=== PATIENT | male | born 1970 | race Caucasian/White ===

== ENCOUNTER 2018-11-28 19:49 | Inpatient (IN) | payer OTHER ==
[2018-11-28] MEDS ORDERED: ACETAMINOPHEN TAB 500 MG TAB PO STA (20:08)
[2018-11-28] MEDS ORDERED: IBUPROFEN 600 MG TAB PO STA (20:08)
[2018-11-28 20:49] LABS: Basophils # (A) 0.1 k/uL (0-0.2); Basophils % (A) 0 %; Eosinophils # (A) 0.2 k/uL (0-0.7); Eosinophils % (A) 2 %; HCT 43.1 % (39.0-53.0); HGB 14.4 gm/dL (13.0-17.5); Lymphocytes # (A) 1.1 k/uL (1.0-4.8); Lymphocytes % (A) 8 %; MCH 28.2 pg (25.0-35.0); MCHC 33.5 g/dL (31.0-37.0); MCV 84.3 fL (80.0-100.0); Mean Platelet Volume 7.8; Monocytes # (A) 0.8 k/uL (0-1.0); Monocytes % (A) 5 %; Neutrophils % (A) 83 %; Platelet Count 239 k/uL (150-450); RBC 5.11 m/uL (4.30-5.90); RDW 14.3 % (11.5-15.5); WBC 14.4 k/uL (3.8-10.6)
--- NOTE | 2018-11-28 20:55 | ED ---
General Adult HPI - General Source: patient Mode of arrival: ambulatory Limitations: no limitations <Cynthia Alonzo - Last Filed: 11/28/18 22:06> <Sandra Santoro - Last Filed: 11/29/18 07:42> - General Chief complaint: Skin/Abscess/Foreign Body Stated complaint: Head swelling Time Seen by Provider: 11/28/18 20:02 - History of Present Illness Initial comments: 48-year-old male patient presents to the emergency department today for evaluation of redness and pain to his scalp. Patient states he was seen and evaluated at urgent care, sent here for cellulitis. Patient states that he developed redness 2-3 days ago. Patient states that the redness has been spreading and has become more painful. Denies any areas of swelling or abscess. Patient states he has been feverish and chilled. Patient states he does shave his head with an electric razor. Patient denies any other medical problems, denies diabetes, or history of similar infection. States he did have one episode of vomiting this morning. Denies any abdominal pain or diarrhea. Denies taking any medication for his symptoms. Patient denies any recent rash, fever, chills, shortness breath, chest pain, abdominal pain, nausea, vomiting, diarrhea, constipation, back pain, numbness, tingling, dizziness, weakness, hematuria, dysuria, urinary urgency, urinary frequency, headache, visual changes, or any other complaints. (Cynthia Alonzo) - Related Data Allergies Allergy/AdvReac Type Severity Reaction Status Date / Time No Known Allergies Allergy Verified 11/28/18 22:28 Review of Systems ROS Other: All systems not noted in ROS Statement are negative. <Cynthia Alonzo - Last Filed: 11/28/18 22:06> ROS Other: All systems not noted in ROS Statement are negative. <Sandra Santoro - Last Filed: 11/29/18 07:42> ROS Statement: Those systems with pertinent positive or pertinent negative responses have been documented in the HPI. Past Medical History Past Medical History: No Reported History History of Any Multi-Drug Resistant Organisms: None Reported Past Surgical History: No Surgical Hx Reported Past Psychological History: No Psychological Hx Reported Smoking Status: Never smoker Past Alcohol Use History: Rare Past Drug Use History: None Reported <Cynthia Alonzo - Last Filed: 11/28/18 22:06> General Exam Limitations: no limitations General appearance: alert, in no apparent distress, other (Physical well- developed, well-nourished adult male patient in no acute distress. Vital signs upon presentation are temperature 102.7F, pulse 99, respirations 18, blood pressure 139/83, pulse ox 98% on room air.) Head exam: Present: other (There is erythema and soft tissue swelling noted over the left scalp extending down into the neck) Eye exam: Present: normal appearance, PERRL, EOMI. Absent: scleral icterus, conjunctival injection, periorbital swelling ENT exam: Present: normal exam, normal oropharynx, mucous membranes moist Neck exam: Present: normal inspection. Absent: tenderness, meningismus, lymphadenopathy Respiratory exam: Present: normal lung sounds bilaterally. Absent: respiratory distress, wheezes, rales, rhonchi, stridor Cardiovascular Exam: Present: regular rate, normal rhythm, normal heart sounds. Absent: systolic murmur, diastolic murmur, rubs, gallop, clicks GI/Abdominal exam: Present: soft, normal bowel sounds. Absent: distended, tenderness, guarding, rebound, rigid Neurological exam: Present: alert, oriented X3, CN II-XII intact Psychiatric exam: Present: normal affect, normal mood Skin exam: Present: warm, dry, intact, normal color. Absent: rash <Cynthia Alonzo M - Last Filed: 11/28/18 22:06> Course Vital Signs 11/28/18 11/28/18 11/28/18 19:51 21:47 22:00 Temperature 102.7 F H Pulse Rate 99 97 102 H Respiratory 18 16 16 Rate Blood Pressure 139/83 135/76 137/77 O2 Sat by Pulse 98 96 95 Oximetry 11/28/18 11/29/18 23:00 00:00 Temperature 100.2 F H Pulse Rate 98 84 Respiratory 16 16 Rate Blood Pressure 125/89 114/66 O2 Sat by Pulse 94 L 95 Oximetry Medical Decision Making - Lab Data Result diagrams: 11/28/18 20:30 11/28/18 20:30 <Cynthia Alonzo M - Last Filed: 11/28/18 22:06> - Lab Data Result diagrams: 11/28/18 20:30 11/28/18 20:30 <Sandra Santoro Last Filed: 11/29/18 07:42> - Medical Decision Making 48-year-old male patient presents to the emergency department today sent from urgent care for evaluation of cellulitis of the scalp. Patient is febrile 102.7F. Labs reviewed and did reveal elevated white blood cell count of 14.4. Given evidence for sepsis we'll admit for IV antibiotics. We will repeat labs in the morning. Antibiotics will be provided. (Cynthia Alonzo) I was available for consultation in the emergency department. The history and physical exam were done by the midlevel provider. I was consulted for this patient's care. I reviewed the case with the midlevel provider and based on their presentation of the patient, I agree with the assessment, medical decision making and plan of care as documented. care was discussed with . she agrees with admission for cellulitis of the scalp resulting in sepsis. Chart was dictated using [employer] dictation software. Attempts were made to correct any dictation errors however some typographical errors may persist. (Sandra Santoro) - Lab Data Lab Results 11/28/18 11/28/18 11/28/18 Range/Units 20:30 20:30 20:30 WBC 14.4 H (3.8-10.6) k/uL RBC 5.11 (4.30-5.90) m/uL Hgb 14.4 (13.0-17.5) gm/dL Hct 43.1 (39.0-53.0) % MCV 84.3 (80.0-100.0) fL MCH 28.2 (25.0-35.0) pg MCHC 33.5 (31.0-37.0) g/dL RDW 14.3 (11.5-15.5) % Plt Count 239 (150-450) k/uL Neutrophils % 83 % Lymphocytes % 8 % Monocytes % 5 % Eosinophils % 2 % Basophils % 0 % Neutrophils # 12.0 H (1.3-7.7) k/uL Lymphocytes # 1.1 (1.0-4.8) k/uL Monocytes # 0.8 (0-1.0) k/uL Eosinophils # 0.2 (0-0.7) k/uL Basophils # 0.1 (0-0.2) k/uL PT (9.0-12.0) sec INR (<1.2) APTT (22.0-30.0) sec Sodium 137 (137-145) mmol/L Potassium 4.0 (3.5-5.1) mmol/L Chloride 101 (98-107) mmol/L Carbon Dioxide 25 (22-30) mmol/L Anion Gap 11 mmol/L BUN 13 (9-20) mg/dL Creatinine 0.95 (0.66-1.25) mg/dL Est GFR (CKD-EPI)AfAm >90 (>60 ml/min/1.73 sqM) Est GFR (CKD-EPI)NonAf >90 (>60 ml/min/1.73 sqM) Glucose 115 H (74-99) mg/dL Plasma Lactic Acid Patrice 1.3 (0.7-2.0) mmol/L Calcium 9.6 (8.4-10.2) mg/dL Total Bilirubin 1.1 (0.2-1.3) mg/dL AST 19 (17-59) U/L ALT 22 (21-72) U/L Alkaline Phosphatase 61 (38-126) U/L Total Protein 7.1 (6.3-8.2) g/dL Albumin 4.3 (3.5-5.0) g/dL 11/28/18 Range/Units 20:30 WBC (3.8-10.6) k/uL RBC (4.30-5.90) m/uL Hgb (13.0-17.5) gm/dL Hct (39.0-53.0) % MCV (80.0-100.0) fL MCH (25.0-35.0) pg MCHC (31.0-37.0) g/dL RDW (11.5-15.5) % Plt Count (150-450) k/uL Neutrophils % % Lymphocytes % % Monocytes % % Eosinophils % % Basophils % % Neutrophils # (1.3-7.7) k/uL Lymphocytes # (1.0-4.8) k/uL Monocytes # (0-1.0) k/uL Eosinophils # (0-0.7) k/uL Basophils # (0-0.2) k/uL PT 10.6 (9.0-12.0) sec INR 1.0 (<1.2) APTT 25.2 (22.0-30.0) sec Sodium (137-145) mmol/L Potassium (3.5-5.1) mmol/L Chloride (98-107) mmol/L Carbon Dioxide (22-30) mmol/L Anion Gap mmol/L BUN (9-20) mg/dL Creatinine (0.66-1.25) mg/dL Est GFR (CKD-EPI)AfAm (>60 ml/min/1.73 sqM) Est GFR (CKD-EPI)NonAf (>60 ml/min/1.73 sqM) Glucose (74-99) mg/dL Plasma Lactic Acid Patrice (0.7-2.0) mmol/L Calcium (8.4-10.2) mg/dL Total Bilirubin (0.2-1.3) mg/dL AST (17-59) U/L ALT (21-72) U/L Alkaline Phosphatase (38-126) U/L Total Protein (6.3-8.2) g/dL Albumin (3.5-5.0) g/dL Disposition Decision to Admit Reason: Admit from EC Decision Date: 11/28/18 Decision Time: 22:08 <Cynthia Alonzo - Last Filed: 11/28/18 22:06> <Sandra Santoro - Last Filed: 11/29/18 07:42> Clinical Impression: Cellulitis of scalp Disposition: ADMITTED IP TO THIS [facility] Condition: Serious
[2018-11-28 21:01] LABS: ALT 22 U/L (21-72); AST 19 U/L (17-59); Albumin 4.3 g/dL (3.5-5.0); Alkaline Phosphatase 61 U/L (38-126); Anion Gap 11 mmol/L; Blood Urea Nitrogen 13 mg/dL (9-20); Calcium 9.6 mg/dL (8.4-10.2); Carbon Dioxide 25 mmol/L (22-30); Chloride 101 mmol/L (98-107); Glucose 115 mg/dL (74-99); Sodium 137 mmol/L (137-145); Total Bilirubin 1.1 mg/dL (0.2-1.3); Total Protein 7.1 g/dL (6.3-8.2)
[2018-11-28] MEDS: SODIUM CHLORIDE 0.9% 500 ML 500 ML IV SCH ×2 (21:02→21:49)
[2018-11-28 21:13] LABS: Partial Thromboplastin Time 25.2 sec (22.0-30.0); Prothrombin Time 10.6 sec (9.0-12.0)
[2018-11-28] MEDS ORDERED: ACETAMINOPHEN TAB 325 MG TAB PO PRN (22:04)
[2018-11-28] MEDS ORDERED: NALOXONE 0.4 MG/ML 1 ML VIAL IV PRN (22:04)
[2018-11-28] MEDS ORDERED: ONDANSETRON 4 MG/2 ML VIAL IVP PRN (22:04)
[2018-11-28] MEDS ORDERED: MORPHINE SULFATE 4 MG/ML SYRINGE IVP STA (22:06)
[2018-11-28 23:29] LABS: Appearance,Urine Clear (Clear); Bilirubin,Urine Negative (Negative); Blood,Urine Small (Negative); Color,Urine Yellow; Glucose,Urine (UA) Negative (Negative); Ketones,Urine 1+ (Negative); Leukocyte Esterase,Urine Negative (Negative); Mucus,Urine Moderate /hpf; Nitrite,Urine Negative (Negative); PH, Urine 5.5 (5.0-8.0); Protein,Urine Trace (Negative); RBC,Urine 1 /hpf (0-5); Specific Gravity,Urine 1.031 (1.001-1.035); Squamous Epithelial Cell,Urine <1 /hpf (0-4); WBC,Urine 3 /hpf (0-5)
[2018-11-28] MEDS: SODIUM CHLORIDE 0.9% 1,000 ML IV SCH (23:59)
[2018-11-29] MEDS: SODIUM CHLORIDE 0.9% 500 ML 500 ML IV SCH (00:20)
[2018-11-29 01:40] VITALS: BMI 27.5
[2018-11-29] MEDS: IBUPROFEN 400 MG TAB PO PRN ×3 (07:52→20:46)
[2018-11-29 07:54] LABS: Basophils % (A) 0 %; Eosinophils # (A) 0.2 k/uL (0-0.7); Eosinophils % (A) 2 %; HCT 38.6 % (39.0-53.0); HGB 12.3 gm/dL (13.0-17.5); Lymphocytes # (A) 1.1 k/uL (1.0-4.8); Lymphocytes % (A) 13 %; MCH 27.5 pg (25.0-35.0); MCHC 31.8 g/dL (31.0-37.0); MCV 86.4 fL (80.0-100.0); Mean Platelet Volume 7.9; Monocytes # (A) 0.6 k/uL (0-1.0); Monocytes % (A) 7 %; Neutrophils # (A) 6.5 k/uL (1.3-7.7); Neutrophils % (A) 76 %; Platelet Count 199 k/uL (150-450); RBC 4.47 m/uL (4.30-5.90); WBC 8.6 k/uL (3.8-10.6)
[2018-11-29] MEDS: SODIUM CHLORIDE 0.9% 1,000 ML IV SCH ×2 (12:44→13:24)
--- NOTE | 2018-11-29 15:08 | P.HPIM ---
History of Present Illness 48-year-old the male came in with redness of the scalp found as the lightest patient does have fever and increasing redness pain tenderness patient does not have any orbital involvement. He does shave his head with electric razor. Patient doesn't have any history of diabetes mellitus. Patient is on Cefazolin appears to have some improvement ceftezolin patient will be monitored on Keflex. Patient is afebrile and if she is a lightest improves patient can be discharged on Keflex for about a week. Review of Systems REVIEW OF SYSTEMS: CONSTITUTIONAL: No fever, no malaise, no fatigue. HEENT: No recent visual problems or hearing problems. Denied any sore throat. CARDIOVASCULAR: No chest pain, orthopnea, PND, no palpitations, no syncope. PULMONARY: No shortness of breath, no cough, no hemoptysis. GASTROINTESTINAL: No diarrhea, no nausea, no vomiting, no abdominal pain. NEUROLOGICAL: No headaches, no weakness, no numbness. HEMATOLOGICAL: Denies any bleeding or petechiae. GENITOURINARY: Denies any burning micturition, frequency, or urgency. MUSCULOSKELETAL/RHEUMATOLOGICAL: Denies any joint pain, swelling, or any muscle pain. ENDOCRINE: Denies any polyuria or polydipsia. The rest of the 14-point review of systems is negative. Past Medical History Past Medical History: No Reported History History of Any Multi-Drug Resistant Organisms: None Reported Past Surgical History: No Surgical Hx Reported Past Psychological History: No Psychological Hx Reported Smoking Status: Never smoker Past Alcohol Use History: Rare Past Drug Use History: None Reported - Past Family History Mother Family Medical History: No Reported History Father Family Medical History: Coronary Artery Disease (CAD) Medications and Allergies Home Medications Medication Instructions Recorded Confirmed Type No Known Home Medications 11/28/18 11/28/18 History Allergies Allergy/AdvReac Type Severity Reaction Status Date / Time No Known Allergies Allergy Verified 11/28/18 22:28 Physical Exam Vitals: Vital Signs Temp Pulse Pulse Resp BP BP BP 11/29/18 14:37 79 20 11/29/18 11:25 97.9 F 79 20 112/75 11/29/18 05:06 97.5 F L 78 18 101/65 11/29/18 01:45 97.8 F 76 18 106/66 11/29/18 00:00 84 16 114/66 11/28/18 23:00 100.2 F H 98 16 125/89 11/28/18 22:00 102 H 16 137/77 11/28/18 21:47 97 16 135/76 11/28/18 19:51 102.7 F H 99 18 139/83 Pulse Ox 11/29/18 14:37 11/29/18 11:25 97 11/29/18 05:06 97 11/29/18 01:45 94 L 11/29/18 00:00 95 11/28/18 23:00 94 L 11/28/18 22:00 95 11/28/18 21:47 96 11/28/18 19:51 98 Intake and Output 11/29/18 11/29/18 11/29/18 06:59 14:59 22:59 Intake Total 2089 2199 Balance 2089 2199 Intake: Amount of Fluid Infused ( 1500 ml) Intake, IV Titration 700 Amount Sodium Chloride 0.9% 1, 650 000 ml @ 75 mls/hr IV . [id number] [facility] Rx#:[id number] ceFAZolin 1,000 mg In 50 Sodium Chloride 0.9% 50 ml @ 100 mls/hr IVPB Q8H [facility] Rx#:[id number] Oral 590 1500 Other: Voiding Method Toilet Toilet # Voids 3 PHYSICAL EXAMINATION: GENERAL: The patient is alert and oriented x3, not in any acute distress. Well developed, well nourished. HEENT: Pupils are round and equally reacting to light. EOMI. No scleral icterus. No conjunctival pallor. Normocephalic, atraumatic. No pharyngeal erythema. No thyromegaly. CARDIOVASCULAR: S1 and S2 present. No murmurs, rubs, or gallops. PULMONARY: Chest is clear to auscultation, no wheezing or crackles. ABDOMEN: Soft, nontender, nondistended, normoactive bowel sounds. No palpable organomegaly. MUSCULOSKELETAL: No joint swelling or deformity. EXTREMITIES: No cyanosis, clubbing, or pedal edema. NEUROLOGICAL: Gross neurological examination did not reveal any focal deficits. SKIN: He is redness of the scalp involving the whole scalp area and forehead as well. Results CBC & Chem 7: 11/29/18 07:17 11/28/18 20:30 Labs: Abnormal Lab Results - Last 24 Hours (Table) 11/28/18 11/28/18 11/28/18 Range/Units 20:30 20:30 23:10 WBC 14.4 H (3.8-10.6) k/uL Hgb (13.0-17.5) gm/dL Hct (39.0-53.0) % Neutrophils # 12.0 H (1.3-7.7) k/uL Glucose 115 H (74-99) mg/dL Urine Protein Trace H (Negative) Urine Ketones 1+ H (Negative) Urine Blood Small H (Negative) Urine Mucus Moderate H (None) /hpf 11/29/18 Range/Units 07:17 WBC (3.8-10.6) k/uL Hgb 12.3 L (13.0-17.5) gm/dL Hct 38.6 L (39.0-53.0) % Neutrophils # (1.3-7.7) k/uL Glucose (74-99) mg/dL Urine Protein (Negative) Urine Ketones (Negative) Urine Blood (Negative) Urine Mucus (None) /hpf Microbiology - Last 24 Hours (Table) 11/28/18 23:10 Urine Culture - Preliminary Urine,Voided Thrombosis Risk Factor Assmnt - Choose All That Apply Any of the Below Risk Factors Present?: Yes Each Factor Represents 1 point: Obesity (BMI >25) Thrombosis Risk Factor Assessment Total Risk Factor Score: 1 Thrombosis Risk Factor Assessment Level: Low Risk Assessment and Plan Plan: -Cellulitis of the scalp: No history of MRSA patient does not have any lymphadenopathy patient was started on ceftezolin. Fever improved white blood cell count improved -Sepsis and leukocytosis secondary to above.
[2018-11-29 20:30] VITALS: RESP 18
[2018-11-30] MEDS: IBUPROFEN 400 MG TAB PO PRN (04:24)
[2018-11-30 05:08] VITALS: BP 123/78; PULSE 87; TEMP 98
--- NOTE | 2018-11-30 16:13 | P.DS ---
Providers Date of admission: 11/28/18 23:00 Attending physician: Bon Garza Primary care physician: Nicole Dietz Hospital Course: 48-year-old admitted with facilities of the scalp from an electric razor. Patient redness improved with ceftezolin and no evidence of MRSA patient will be to discharged on Keflex his redness did improve in last couple days his redness doesn't resolve in next 2-3 days probably antibiotic need to be changed to Bactrim to cover MRSA at that time. Patient will be discharged today with follow-up with PCP as an outpatient. Fevers resolved, blood cultures so far negative. PHYSICAL EXAMINATION: GENERAL: The patient is alert and oriented x3, not in any acute distress. Well developed, well nourished. HEENT: Pupils are round and equally reacting to light. EOMI. No scleral icterus. No conjunctival pallor. Normocephalic, atraumatic. No pharyngeal erythema. No thyromegaly. CARDIOVASCULAR: S1 and S2 present. No murmurs, rubs, or gallops. PULMONARY: Chest is clear to auscultation, no wheezing or crackles. ABDOMEN: Soft, nontender, nondistended, normoactive bowel sounds. No palpable organomegaly. MUSCULOSKELETAL: No joint swelling or deformity. EXTREMITIES: No cyanosis, clubbing, or pedal edema. NEUROLOGICAL: Gross neurological examination did not reveal any focal deficits. SKIN: Scalp redness did improve compared to yesterday Please refer to my HPI for further details of hospitalization course Patient Condition at Discharge: Good Plan - Discharge Summary Discharge Rx Participant: No New Discharge Prescriptions: New Cephalexin [Keflex] 500 mg PO Q6HR #28 cap Discharge Medication List Cephalexin [Keflex] 500 mg PO Q6HR #28 cap 11/30/18 [Rx] Follow up Appointment(s)/Referral(s): Nicole Dietz MD [Primary Care Provider] - 1-2 days (office to call pt for follow up appt) Patient Instructions/Handouts: Cephalexin (By mouth), Cellulitis (DC) Activity/Diet/Wound Care/Special Instructions: Diet as tolerated Activity as tolerated Discharge Disposition: HOME SELF-CARE
--- NOTE | 2018-12-02 02:49 | CDI ---
Documentation Clarification Form Date: 12/02/18 From: Wes Duggan Phone: call to [phone] Admit Date: 11/28/2018 11:00:00 PM Patient Name: Jorge Luis Green Visit Number: [id number] Discharge Date: 11/30/2018 12:30:00 PM ATTENTION: The Clinical Documentation Specialists (CDI) and [facility] Coding Staff appreciate your assistance in clarifying documentation. Please respond to the clarification below the line at the bottom and electronically sign. The CDI & [facility] Coding staff will review the response and follow-up if needed. Please note: Queries are made part of the Legal Health Record. If you have any questions, please contact the author of this message via ITS. Dr. Bekah Govea The patient presented with the following cellulitis. History/Risk Factors: cellulitis Clinical Indicators: WBC :14.4 Lactic acid: 1.3 Blood cultures: negative so far Vitals signs on admission: pulse 99 RR 18 Treatment: IV abx Antibiotics:Ceftezolin IV fluids: yes Other: Documented In H&P as Sepsis secondary to cellulitis but discharge summary states only cellulitis. In your professional opinion, please clarify if these findings signify one of the following conditions, Sepsis ruled out Sepsis Other, please specify Unable to determine If it's dictated in H&P then patient had sepsis MTDD
== END 2018-11-30 12:30 | disposition home or self-care (01) | DRG 872 ==
LOC: EC 19:49 → 3NMEDONC 23:00
PROVIDERS: ADMIT Hospitalist; ATTEND Hospitalist
DX: A41.9 Sepsis, unspecified organism (principal); L03.811 Cellulitis of head [any part, except face]; Z82.49 Family history of ischemic heart disease and other diseases of the circulatory system
CPT/HCPCS: 36415; 80053; 81001; 83605; 85025; 85610; 85730; 87040; 87086; 96361; 96365; 96375; 99284

== ENCOUNTER 2019-09-10 10:26 | Inpatient (IN) | payer OTHER ==
[2019-09-10] MEDS ORDERED: SODIUM CHLORIDE 0.9% 1,000 ML IV STA (11:11)
[2019-09-10] MEDS ORDERED: IBUPROFEN 600 MG TAB PO STA (11:11)
[2019-09-10] MEDS ORDERED: SODIUM CHLORIDE 0.9% 1,250 ML IV ONE (11:13)
--- NOTE | 2019-09-10 12:24 | ED ---
Fever HPI - General Chief Complaint: Fever Stated Complaint: Fever, Ear Infection Time Seen by Provider: 09/10/19 10:40 Source: patient Mode of arrival: wheelchair Limitations: no limitations - History of Present Illness Initial Comments: The patient is a 41-year-old male with no past medical history who presents to the emergency department with reported fever and left ear pain with swelling. Patient reports a history of similar approximately one year ago. States it diagnosed with cellulitis which required a 2 day hospital stay with IV antibiotics. Reports that the left ear pain and swelling started yesterday around 4:30 AM. He has significant pain to the internal left ear as well as the left external ear. Also reports to post auricular pain. Admits to decreased hearing. Has not taken any Motrin or Tylenol for fever. He went to an urgent care yesterday for which they did call in an antibiotic ear drop. States that he attempted to pick it up from pharmacy however it was over $300 for the prescription so he has yet to start it. Denies any neck pain or stiffness. No altered mentation from the patient. Denies any nausea or vomiting. No chest pain or shortness of breath. Denies a cough. No palpable pain or changes in his bowel or bladder habits. Denies any other source for infection. There are no other alleviating, precipitating or modifying factors - Related Data Previous Rx's Medication Instructions Recorded Cephalexin [Keflex] 500 mg PO Q6HR #30 cap 09/14/19 Ciprofloxacin-Dexameth [Ciprodex 4 drops LEFT EAR TID ml 09/14/19 Otic Susp] Naproxen [Naprosyn] 250 mg PO TID #21 tab 09/14/19 Allergies Allergy/AdvReac Type Severity Reaction Status Date / Time No Known Allergies Allergy Verified 09/10/19 15:01 Review of Systems ROS Statement: Those systems with pertinent positive or pertinent negative responses have been documented in the HPI. ROS Other: All systems not noted in ROS Statement are negative. Past Medical History Past Medical History: No Reported History History of Any Multi-Drug Resistant Organisms: None Reported Past Surgical History: No Surgical Hx Reported Past Psychological History: No Psychological Hx Reported Smoking Status: Never smoker Past Alcohol Use History: Rare Past Drug Use History: None Reported - Past Family History Mother Family Medical History: No Reported History Father Family Medical History: Coronary Artery Disease (CAD) General Exam Limitations: no limitations General appearance: alert, in no apparent distress Head exam: Present: atraumatic Eye exam: Present: PERRL, EOMI ENT exam: Present: other (left ear is markedly swollen and red. Left external auditory canal is stenosed and tortuous. Mild cream exudate. TM deep is red in color. Redness tracts to the preauricular area and down onto the patients left neck. Right TM and external ear is asymptomatic.) Neck exam: Present: normal inspection. Absent: tenderness, meningismus, lymphadenopathy Respiratory exam: Present: normal lung sounds bilaterally. Absent: respiratory distress, wheezes, rales, rhonchi, stridor Cardiovascular Exam: Present: normal rhythm, tachycardia GI/Abdominal exam: Present: soft, normal bowel sounds. Absent: distended, tenderness, guarding, rebound, rigid Course Vital Signs 09/10/19 09/10/19 10:37 14:25 Temperature 103.1 F H 98.8 F Pulse Rate 111 H 110 H Respiratory 20 18 Rate Blood Pressure 149/79 133/78 O2 Sat by Pulse 96 95 Oximetry Medical Decision Making - Medical Decision Making Upon arrival the patient was placed in room 5. A thorough history and physical exam was performed. I did order laboratory studies and a CT of the patient's external auditory canal exam concern for mastoiditis. 3 nurses did attempt to get peripheral access on the patient however they had difficulty. I then evaluated the patient with ultrasound and I do not have an identifiable vessel to cannulate. We called ENVIRONMENTAL PROJECT MANAGER to come to the emergency department for assistance. She did get called to a emergent case and therefore the photonics engineering technologist does attempt IV access and was able to get the patient's right hand. Review of the laboratory studies demonstrated with blood cell count of 14.5. C-reactive protein is 52. Posterior fossa CT demonstrates no signs of mastoiditis. There is signs of soft tissue swelling and edema involving the left ear external auditory Consistent with otitis externa. I did place the patient on Zosyn after I obtained blood cultures. I also ordered ofloxacin drops for the patient's ear. I did plan on putting a wic in the patient's ear however he did go up to the floor before I was able to do this. The patient was given Motrin for fever control. I did recommend admission for which the patient did agree. I called and discussed the case with Dr. Torres who accepted admission. I will place ENT and infectious disease consult. The patient was in agreement with the treatment plan and he was transferred to floor in stable condition - Lab Data Result diagrams: 09/12/19 09:25 09/11/19 07:27 Lab Results 09/10/19 09/10/19 09/10/19 Range/Units 12:45 12:45 12:45 WBC 14.5 H (3.8-10.6) k/uL RBC 5.16 (4.30-5.90) m/uL Hgb 15.3 (13.0-17.5) gm/dL Hct 44.7 (39.0-53.0) % MCV 86.5 (80.0-100.0) fL MCH 29.6 (25.0-35.0) pg MCHC 34.2 (31.0-37.0) g/dL RDW 13.1 (11.5-15.5) % Plt Count 217 (150-450) k/uL Neutrophils % 91 % Lymphocytes % 4 % Monocytes % 4 % Eosinophils % 1 % Basophils % 0 % Neutrophils # 13.2 H (1.3-7.7) k/uL Lymphocytes # 0.5 L (1.0-4.8) k/uL Monocytes # 0.5 (0-1.0) k/uL Eosinophils # 0.1 (0-0.7) k/uL Basophils # 0.0 (0-0.2) k/uL Sodium 137 (137-145) mmol/L Potassium 4.2 (3.5-5.1) mmol/L Chloride 103 (98-107) mmol/L Carbon Dioxide 23 (22-30) mmol/L Anion Gap 11 mmol/L BUN 15 (9-20) mg/dL Creatinine 0.98 (0.66-1.25) mg/dL Est GFR (CKD-EPI)AfAm >90 (>60 ml/min/1.73 sqM) Est GFR (CKD-EPI)NonAf >90 (>60 ml/min/1.73 sqM) Glucose 112 H (74-99) mg/dL Plasma Lactic Acid Patrice 1.6 (0.7-2.0) mmol/L Calcium 9.5 (8.4-10.2) mg/dL Total Bilirubin 0.9 (0.2-1.3) mg/dL AST 25 (17-59) U/L ALT 21 (4-49) U/L Alkaline Phosphatase 89 (38-126) U/L C-Reactive Protein 52.0 H (<10.0) mg/L Total Protein 7.6 (6.3-8.2) g/dL Albumin 4.5 (3.5-5.0) g/dL 09/11/19 09/11/19 09/12/19 Range/Units 07:27 07:27 09:25 WBC 11.6 H 6.5 (3.8-10.6) k/uL RBC 4.38 4.46 (4.30-5.90) m/uL Hgb 12.6 L 12.7 L (13.0-17.5) gm/dL Hct 37.9 L 39.0 (39.0-53.0) % MCV 86.7 87.5 (80.0-100.0) fL MCH 28.7 28.6 (25.0-35.0) pg MCHC 33.1 32.7 (31.0-37.0) g/dL RDW 13.2 13.3 (11.5-15.5) % Plt Count 250 218 (150-450) k/uL Neutrophils % 81 74 % Lymphocytes % 11 14 % Monocytes % 6 4 % Eosinophils % 0 5 % Basophils % 0 0 % Neutrophils # 9.4 H 4.8 (1.3-7.7) k/uL Lymphocytes # 1.2 0.9 L (1.0-4.8) k/uL Monocytes # 0.7 0.3 (0-1.0) k/uL Eosinophils # 0.0 0.3 (0-0.7) k/uL Basophils # 0.0 0.0 (0-0.2) k/uL Sodium 137 (137-145) mmol/L Potassium 4.0 (3.5-5.1) mmol/L Chloride 107 (98-107) mmol/L Carbon Dioxide 23 (22-30) mmol/L Anion Gap 7 mmol/L BUN 13 (9-20) mg/dL Creatinine 0.91 (0.66-1.25) mg/dL Est GFR (CKD-EPI)AfAm >90 (>60 ml/min/1.73 sqM) Est GFR (CKD-EPI)NonAf >90 (>60 ml/min/1.73 sqM) Glucose 109 H (74-99) mg/dL Plasma Lactic Acid Patrice (0.7-2.0) mmol/L Calcium 8.3 L (8.4-10.2) mg/dL Total Bilirubin (0.2-1.3) mg/dL AST (17-59) U/L ALT (4-49) U/L Alkaline Phosphatase (38-126) U/L C-Reactive Protein (<10.0) mg/L Total Protein (6.3-8.2) g/dL Albumin (3.5-5.0) g/dL 09/12/19 Range/Units 09:25 WBC (3.8-10.6) k/uL RBC (4.30-5.90) m/uL Hgb (13.0-17.5) gm/dL Hct (39.0-53.0) % MCV (80.0-100.0) fL MCH (25.0-35.0) pg MCHC (31.0-37.0) g/dL RDW (11.5-15.5) % Plt Count (150-450) k/uL Neutrophils % % Lymphocytes % % Monocytes % % Eosinophils % % Basophils % % Neutrophils # (1.3-7.7) k/uL Lymphocytes # (1.0-4.8) k/uL Monocytes # (0-1.0) k/uL Eosinophils # (0-0.7) k/uL Basophils # (0-0.2) k/uL Sodium (137-145) mmol/L Potassium (3.5-5.1) mmol/L Chloride (98-107) mmol/L Carbon Dioxide (22-30) mmol/L Anion Gap mmol/L BUN (9-20) mg/dL Creatinine (0.66-1.25) mg/dL Est GFR (CKD-EPI)AfAm (>60 ml/min/1.73 sqM) Est GFR (CKD-EPI)NonAf (>60 ml/min/1.73 sqM) Glucose (74-99) mg/dL Plasma Lactic Acid Patrice (0.7-2.0) mmol/L Calcium (8.4-10.2) mg/dL Total Bilirubin (0.2-1.3) mg/dL AST (17-59) U/L ALT (4-49) U/L Alkaline Phosphatase (38-126) U/L C-Reactive Protein 131.1 H (<10.0) mg/L Total Protein (6.3-8.2) g/dL Albumin (3.5-5.0) g/dL Disposition Clinical Impression: Left otitis externa, Cellulitis of scalp, Sepsis Disposition: ADMITTED IP TO THIS [facility] Condition: Stable Is patient prescribed a controlled substance at d/c from ED?: No Decision to Admit Reason: Admit from EC Decision Date: 09/10/19 Decision Time: 14:56
[2019-09-10 13:12] LABS: Basophils % (A) 0 %; Eosinophils # (A) 0.1 k/uL (0-0.7); Eosinophils % (A) 1 %; HCT 44.7 % (39.0-53.0); HGB 15.3 gm/dL (13.0-17.5); Lymphocytes # (A) 0.5 k/uL (1.0-4.8); Lymphocytes % (A) 4 %; MCH 29.6 pg (25.0-35.0); MCHC 34.2 g/dL (31.0-37.0); MCV 86.5 fL (80.0-100.0); Mean Platelet Volume 8.8; Monocytes # (A) 0.5 k/uL (0-1.0); Monocytes % (A) 4 %; Neutrophils # (A) 13.2 k/uL (1.3-7.7); Neutrophils % (A) 91 %; Platelet Count 217 k/uL (150-450); RBC 5.16 m/uL (4.30-5.90); RDW 13.1 % (11.5-15.5); WBC 14.5 k/uL (3.8-10.6)
[2019-09-10 13:21] LABS: ALT 21 U/L (4-49); AST 25 U/L (17-59); African American GFR (CKD) >90 (>60 ml/min/1.73 sqM); Albumin 4.5 g/dL (3.5-5.0); Alkaline Phosphatase 89 U/L (38-126); Anion Gap 11 mmol/L; Blood Urea Nitrogen 15 mg/dL (9-20); Calcium 9.5 mg/dL (8.4-10.2); Carbon Dioxide 23 mmol/L (22-30); Chloride 103 mmol/L (98-107); Glucose 112 mg/dL (74-99); Non-African American GFR(CKD) >90 (>60 ml/min/1.73 sqM); Potassium 4.2 mmol/L (3.5-5.1); Sodium 137 mmol/L (137-145); Total Bilirubin 0.9 mg/dL (0.2-1.3); Total Protein 7.6 g/dL (6.3-8.2)
--- NOTE | 2019-09-10 14:39 | CT ---
EXAMINATION TYPE: CT posterior fossa w con DATE OF EXAM: 09/10/2019 COMPARISON: None HISTORY: Pt c/o Lt ear pain with redness and swelling. CT DLP: 287.3 mGycm Automated exposure control for dose reduction was used. CONTRAST: Performed with IV Contrast, patient injected with 100 mL of Isovue 300. CT scan of the temporal bones. History left ear pain. Redness and swelling. Comparison none. TECHNIQUE: Multiple axial sections were obtained from the skull base to the top of the orbits with intravenous c ontrast. There is mucosal thickening in the left maxillary sinus. Maxilla is intact. Zygomatic arches appear n ormal. There is normal aeration of the mastoid air cells. External auditory canals appear normal on t he right side and slightly narrowed on the left side due to soft tissue mild edema. There is mild sub cutaneous edema at the left side external auditory canal. No discrete fluid collection. Temporomandibular joints appear normal. There is normal aeration of the epitympanic recess bilaterall y. There is normal aeration of the middle ear cavity bilaterally. There is no bony destructive proces s involving the temporal bones. There is normal enhancement of the jugular veins and carotid arteries . There is arterial flow in the vertebrobasilar artery system. The cochlea and semicircular canals ap pear intact. IMPRESSION: Soft tissue mild swelling and edema involving the left ear and external auditory canal consistent wit h otitis externa. Normal middle ear and inner ear. Left maxillary sinusitis.
[2019-09-10] MEDS ORDERED: IBUPROFEN 400 MG TAB PO PRN (14:56)
[2019-09-10] MEDS ORDERED: NALOXONE 0.4 MG/ML 1 ML VIAL IV PRN (14:56)
[2019-09-10] MEDS ORDERED: ACETAMINOPHEN TAB 325 MG TAB PO PRN (14:56)
[2019-09-10] MEDS ORDERED: OFLOXACIN 0.3% OPHTH DROPS 5 ML BOTTLE LEFT EAR SCH (15:00)
[2019-09-10] MEDS ORDERED: PIPERACILLIN-TAZOBACTAM 3.375 GM in SODIUM CHLORIDE 0.9% 100 ML IVPB SCH (16:00)
[2019-09-10] MEDS: SODIUM CHLORIDE 0.9% 1,000 ML IV SCH ×2 (16:05→23:38)
[2019-09-10] MEDS: ENOXAPARIN 40 MG/0.4 ML SYRINGE SQ SCH (19:15)
[2019-09-11 07:51] LABS: Basophils % (A) 0 %; Eosinophils % (A) 0 %; HCT 37.9 % (39.0-53.0); HGB 12.6 gm/dL (13.0-17.5); Lymphocytes # (A) 1.2 k/uL (1.0-4.8); Lymphocytes % (A) 11 %; MCH 28.7 pg (25.0-35.0); MCHC 33.1 g/dL (31.0-37.0); MCV 86.7 fL (80.0-100.0); Mean Platelet Volume 8.3; Monocytes # (A) 0.7 k/uL (0-1.0); Monocytes % (A) 6 %; Neutrophils # (A) 9.4 k/uL (1.3-7.7); Neutrophils % (A) 81 %; Platelet Count 250 k/uL (150-450); RBC 4.38 m/uL (4.30-5.90); RDW 13.2 % (11.5-15.5); WBC 11.6 k/uL (3.8-10.6)
[2019-09-11 08:03] LABS: African American GFR (CKD) >90 (>60 ml/min/1.73 sqM); Anion Gap 7 mmol/L; Blood Urea Nitrogen 13 mg/dL (9-20); Calcium 8.3 mg/dL (8.4-10.2); Carbon Dioxide 23 mmol/L (22-30); Chloride 107 mmol/L (98-107); Glucose 109 mg/dL (74-99); Non-African American GFR(CKD) >90 (>60 ml/min/1.73 sqM); Sodium 137 mmol/L (137-145)
--- NOTE | 2019-09-11 09:38 | P.CONS ---
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 with subsequent noticed the left ear to becoming more swollen red and painful patient describes the pain to be throbbing with intensity about 8 out of 10 and no radiation patient denies having any drainage from his left ear patient denies having any other URI symptoms and denies having any rash or swelling redness at any other part of the body but denies having any chest pain shortness with cough no nausea no vomiting no abdominal pain or any diarrhea with the symptom the patient presented to the hospital on arrival to the ER the patient did have a fever of 103 F patient was tachycardic with heart rate of 110 white count was elevated 14.5 patient did have a CT of the posterior fossa that has been suggestive of otitis externa with no involvement of the middle or internal ear patient did received a dose of Zosyn subsequently has been in the hospital on IV Zosyn infectious was consulted for further recommenda tion regarding antibiotic therapy. Review of Systems Positive point has been mentioned in HPI rest of the systems are negative Past Medical History Past Medical History: No Reported History History of Any Multi-Drug Resistant Organisms: None Reported Past Surgical History: No Surgical Hx Reported Past Psychological History: No Psychological Hx Reported Smoking Status: Never smoker Past Alcohol Use History: Rare Past Drug Use History: None Reported - Past Family History Mother Family Medical History: No Reported History Father Family Medical History: Coronary Artery Disease (CAD) Medications and Allergies Home Medications Medication Instructions Recorded Confirmed Type No Known Home Medications 09/10/19 09/10/19 History Allergies Allergy/AdvReac Type Severity Reaction Status Date / Time No Known Allergies Allergy Verified 09/10/19 15:01 Physical Exam Vitals: Vital Signs Temp Pulse Resp BP Pulse Ox 09/10/19 14:25 98.8 F 110 H 18 133/78 95 09/10/19 10:37 103.1 F H 111 H 20 149/79 96 Intake and Output 09/10/19 09/10/19 09/10/19 06:59 14:59 22:59 Other: Weight 90.718 kg GENERAL DESCRIPTION: Middle-aged male lying in bed, no distress. No tachypnea or accessory muscle of respiration use. HEENT: Shows Pallor , no scleral icterus. Oral mucous membrane is dry. Left external ear is swollen right with some redness spreading to the left maxillary area which is warm and tender to touch there was no drainage NECK: Trachea central, no thyromegaly. LUNGS: Unlabored breathing. Clear to auscultation anteriorly. No wheeze or crackle. HEART: S1, S2, regular rate and rhythm. ABDOMEN: Soft, no tenderness , guarding or rigidity EXTREMITIES: No edema of feet. SKIN: No rash, no masses palpable. NEUROLOGICAL: The patient is awake, alert, oriented x3, mood and affect normal. Results CBC & Chem 7: 09/11/19 07:27 09/11/19 07:27 Labs: Abnormal Lab Results - Last 24 Hours (Table) 09/10/19 09/10/19 Range/Units 12:45 12:45 WBC 14.5 H (3.8-10.6) k/uL Neutrophils # 13.2 H (1.3-7.7) k/uL Lymphocytes # 0.5 L (1.0-4.8) k/uL Glucose 112 H (74-99) mg/dL C-Reactive Protein 52.0 H (<10.0) mg/L Assessment and Plan Assessment: patient presented to hospital with sepsis in this patient did have fever leukocytosis tachycardia source is the left otitis externa with diffuse swelling redness likely streptococcal cellulitis less likely gram-negative infection (1) Sepsis Current Visit: Yes Status: Acute Code(s): A41.9 - SEPSIS, UNSPECIFIED ORGANISM SNOMED Code(s): 63283178 (2) Left otitis externa Current Visit: Yes Status: Acute Code(s): H60.92 - UNSPECIFIED OTITIS EXTERNA, LEFT EAR SNOMED Code(s): 8632174 Plan: 1-marked area of the redness left ear and maxillary area 2-discontinue Zosyn 3-cefazolin 2 g every 8 hour We will follow on clinical condition and cultures to further adjust medication if needed Thank you for this consultation we will follow the patient along with you Time with Patient: Greater than 30
[2019-09-11] MEDS: ENOXAPARIN 40 MG/0.4 ML SYRINGE SQ SCH (09:43)
[2019-09-11] MEDS: SODIUM CHLORIDE 0.9% 1,000 ML IV SCH ×2 (10:57→21:30)
[2019-09-11] MEDS: ACETAMINOPHEN IV (For NPO) 1,000 MG in EMPTY BAG 1 BAG IVPB SCH ×3 (13:54→23:41)
[2019-09-11] MEDS: NAPROXEN 250 MG TAB PO SCH ×2 (17:58→21:30)
[2019-09-11] MEDS: CIPROFLOXACIN-DEXAMETH 0.3-0.1% DROPS 7.5 ML BTL LEFT EAR SCH ×2 (17:59→21:32)
--- NOTE | 2019-09-11 19:33 | P.HPIM ---
History of Present Illness H&P Date: 09/11/19 Chief Complaint: Left-sided face ear redness History of presenting complaint: This is a very pleasant 49-year-old patient of Dr. Luiza Dietz. Rather good health. Patient about 2 days ago noticed that the pain swelling redness started off in the left ear and extended to involve the setting of the face. Became rather severe. And decided to come in. Patient had a previous infection few months ago on the scalp. Patient does use an electric razor for the scalp and also uses the electric razor for shaving his face. Also when using the shower patient will also useTylenol was a fragment of pain inside inside and outside the ear. Patient does pull out his ear hair. Last admitted was about a month ago. Computed tomography scan showed involvement of the maxillary sinus mucosal thickening with no involvement of the mastoid. Patient patient's had fever and some chills. Though significant pain in the local area. Patient's at the bedside. She denies any change of vision. No neck stiffness. 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 Does not smoke or drink. . Denies use of any recreational drug Physical examination: VITAL SIGNS: 103.1, 114, 20, 149/79, 96% room air-upon presentation GENERAL: 28.7, sitting in chair, awake. EYES: Pupils equal. Conjunctiva normal. HEENT: Left ear is thick red and swollen tender with redness extending to how frequently through the cheek and also involvement of the visible portion of the external auditory canal. NECK: JVD not raised; masses not palpable. HEART: First and second heart sounds are normal; no edema. LUNGS: Respiratory rate normal; clear to auscultation. ABDOMEN: Soft, nontender, liver spleen not palpable, no masses palpable. PSYCH: Alert and oriented x3; mood and affect normal. NEUROLOGICAL: Cranial nerves grossly intact; no facial asymmetry, power and sensation grossly intact. LYMPHATICS: No lymph nodes palpable in the axilla and neck INVESTIGATIONS, reviewed in the clinical context: White count 14.5 hemoglobin 15.3 increased neutrophils potassium 4.2 creatinine 0.98 CRP [address]-no involvement of mastoid some mucosal thickening of the maxillary sinus and involvement of the external and artery canal and ear Assessment: -Acute severe cellulitis including the left ear and the order Trichinella and surrounding facial area some possible involvement of the left maxillary sinus. This could've been precipitated by patient using a face towel to scrub his ear. Otitis externa. -Sepsis from above -Elevated CRP Plan: Consultations made to ENT and ID. Patient is an IV ceftriaxone. Lovenox for DVT prophylaxis. Care was discussed at length with the patient and . Advised against the use a using a FreeStyle described on his here in the future. And also to use scissors clippers to cut his hair on the year as opposed to pulling it out. Add naproxen for anti-inflammatory and antipyretic effect. Past Medical History Past Medical History: No Reported History Additional Past Medical History / Comment(s): cellulitis of head History of Any Multi-Drug Resistant Organisms: None Reported Past Surgical History: No Surgical Hx Reported Past Psychological History: No Psychological Hx Reported Smoking Status: Never smoker Past Alcohol Use History: Rare Past Drug Use History: None Reported - Past Family History Mother Family Medical History: No Reported History Father Family Medical History: Coronary Artery Disease (CAD) Medications and Allergies Home Medications Medication Instructions Recorded Confirmed Type No Known Home Medications 09/10/19 09/10/19 History Allergies Allergy/AdvReac Type Severity Reaction Status Date / Time No Known Allergies Allergy Verified 09/10/19 15:01 Physical Exam Vitals: Vital Signs Temp Pulse Pulse Pulse Resp BP BP 09/11/19 12:54 98.0 F 78 18 116/73 09/11/19 05:03 98.4 F 85 16 100/64 09/10/19 20:18 99.5 F 78 17 149/76 09/10/19 16:04 99.1 F 104 H 20 147/75 09/10/19 14:25 98.8 F 110 H 18 133/78 Pulse Ox 09/11/19 12:54 97 09/11/19 05:03 97 09/10/19 20:18 100 09/10/19 16:04 97 09/10/19 14:25 95 Intake and Output 09/10/19 09/11/19 09/11/19 21:59 06:59 14:59 Other: Voiding Method # Voids Results CBC & Chem 7: 09/11/19 07:27 09/11/19 07:27 Labs: Abnormal Lab Results - Last 24 Hours (Table) 09/10/19 09/10/19 09/11/19 Range/Units 12:45 12:45 07:27 WBC 14.5 H 11.6 H (3.8-10.6) k/uL Hgb 12.6 L (13.0-17.5) gm/dL Hct 37.9 L (39.0-53.0) % Neutrophils # 13.2 H 9.4 H (1.3-7.7) k/uL Lymphocytes # 0.5 L (1.0-4.8) k/uL Glucose 112 H (74-99) mg/dL Calcium (8.4-10.2) mg/dL C-Reactive Protein 52.0 H (<10.0) mg/L 09/11/19 Range/Units 07:27 WBC (3.8-10.6) k/uL Hgb (13.0-17.5) gm/dL Hct (39.0-53.0) % Neutrophils # (1.3-7.7) k/uL Lymphocytes # (1.0-4.8) k/uL Glucose 109 H (74-99) mg/dL Calcium 8.3 L (8.4-10.2) mg/dL C-Reactive Protein (<10.0) mg/L Thrombosis Risk Factor Assmnt - Choose All That Apply Each Factor Represents 1 point: Age 41-60 years Thrombosis Risk Factor Assessment Total Risk Factor Score: 1 Thrombosis Risk Factor Assessment Level: Low Risk
[2019-09-12] MEDS: ACETAMINOPHEN IV (For NPO) 1,000 MG in EMPTY BAG 1 BAG IVPB SCH (05:20)
--- NOTE | 2019-09-12 05:36 | CONS ---
CONSULTATION DATE OF CONSULTATION: 09/11/2019 REASON FOR THE CONSULTATION: Left facial swelling, left ear pain. HISTORY OF PRESENT ILLNESS: This patient is a very pleasant 49-year-old male who was admitted via [facility] for treatment of severe pain of the left side of his face and left ear. The patient states that approximately 2 to 3 days prior to admission, he developed swelling initially in the left ear with severe pain in the left ear. He states that the left ear was extremely tender to touch. He denies any prior itching or prior use of any type of Q-tips, peroxide, alcohol, etc., to clean his ears. He states that he had a somewhat similar episode of left-sided ear pain and left swelling of the face approximately 1 year ago. At that time, he was treated with intravenous antibiotics in the hospital for several days and then released. The patient states that the pain got so severe that eventually he sought medical advice at one of the urgent care centers. Unfortunately, they prescribed an antibiotic ear drop that would cost almost 300 dollars. The patient states that his prescription coverage is very poor and would not cover the medication.Therefore, the prescription was never filled. The patient went home and eventually the pain became so severe that he presented at the emergency room. He was examined by the ER doctor and a CT scan of the of the ear was done and no evidence of any mastoiditis was seen. However, there was significant swelling of the external auditory canal. The patient at this time did not have any drainage from the left ear. He was subsequently admitted for definitive treatment. PAST MEDICAL HISTORY: Past medical history reveals patient has no known allergies. He is not currently on any medications. He has no history of asthma, diabetes mellitus or hypertension. REVIEW OF SYSTEMS: Review of systems is completely noncontributory. PHYSICAL EXAMINATION: This patient is a 49-year-old male who was alert, cooperative and is in no acute distress at this time. HEENT EXAMINATION: Patient is normocephalic. Examination of the right ear reveals right ear right external auditory canal and right aide face is completely unremarkable and within normal limits. Right tympanic membrane and middle ear space is free of any fluid or infection. Examination of left ear reveals the patient has significant erythema, edema and tenderness to touch of the left aide face. The left auricle is swollen and is quite tender to the touch with extreme tenderness noted with insertion of the otoscope into the left external auditory canal. There is also exquisite pain with palpation of the left tragus. There was noted to be significant edema, but no purulent or other debris noted in the left external auditory canal. That is to say, the canal appeared to be quite dry. Although there was significant swelling, I was able to see the tympanic membrane and the left tympanic membrane appeared to be unremarkable with no fluid in the left middle ear space. Intranasal examination reveals moderate to severe septal deviation with compensatory hypertrophy of the inferior turbinates and moderate amount of mucus on the mucous membrane draining down posterior pharynx. Examination of oropharynx is completely unremarkable. Palpation of the neck reveals the patient has a few shotty anterior cervical lymph nodes on the left side, which are moderately tender to palpation, mobile ,and well-circumscribed. No significant neck masses are noted. Cranial nerves 2 through 12 and the remainder of the head and neck exam are within normal limits. CHEST/CARDIOVASCULAR: Both lung connell are clear to percussion and auscultation. The patient is in regular sinus rhythm. S1 and S2 are present without evidence any murmurs, S3s or S4. ABDOMEN: There is no evidence of any masses, megaly, or tenderness. The abdomen is soft. The remainder of physical exam is essentially unremarkable. IMPRESSION: Left facial cellulitis/left external otitis. PLAN: The patient is currently receiving 2 grams of Kefzol intravenously every 8 hours. I feel this is an appropriate level of medication to use. I will also add Ciprodex otic, 4 drops in the left external auditory canal 3 times a day because I do feel that this infection most likely started in the left external auditory canal since the patient states that his symptoms originated in the left ear and the left ear was tender to touch at that time. He also relates that as time went on the left ear did in fact swell and the redness and swelling extended onto the left aide-face. In addition, I will order Ofirmev 1000 mg IV q.6 hours for pain because the patient stated that the current dose of Motrin was not working well and it was not lasting very long. Because the swelling of the left external auditory canal was not tremendous and because I feel that the nurses will be able to put the drops in without difficulty, I did not place a tapia wick in the left external auditory canal. I would recommend that this patient receive at least another 24 hours of IV antibiotics and that I would suggest to plan on discharging him on Thursday as opposed to Thursday. If he is discharged on Thursday, he can certainly be discharged on any oral antibiotic of your choice and certainly he should be given the remainder of the ear drops and continue taking those until they are gone. I will not need to see him in my office for followup. He can follow up with his family physician if he has one. If he does not have a family physician, then certainly he can follow up with my office. I want to take this opportunity to thank you for allowing me to assist you in the care of your patient. If I could be of any further assistance, please feel free to call my office. EILEEN / MARTY: [id number] / NELI
--- NOTE | 2019-09-12 07:31 | PN ---
PROGRESS NOTE DATE OF SERVICE: 09/11/2019 REASON FOR FOLLOWUP: Left otitis externa. INTERVAL HISTORY: The patient is currently afebrile. The patient left external ear pain and swelling has slightly decreased. Currently no open wound or obvious drainage. Denies any chest pain or cough. No abdominal pain or diarrhea. PHYSICAL EXAMINATION: Blood pressure 116/73 with a pulse of 78, temperature of 98. He is 97% on room air. General description is a middle-aged male up in the bed in no distress. HEENT EXAMINATION: Left ear and the preauricular swelling and redness has a slightly decreased. LUNGS: Unlabored breathing, clear to auscultation anteriorly. HEART: S1, S2. Regular rate and rhythm. ABDOMEN: Soft, no tenderness. LABS: Hemoglobin is 12.7, white count 11.6, creatinine 0.91. Blood culture has been negative. DIAGNOSTIC IMPRESSION AND PLAN: Patient with left otitis externa in this patient did have diffuse swelling and redness likely streptococcal disease seemed to have clinically responded to cefazolin, to continue. Repeat CBC and CRP tomorrow and monitor the clinical course closely. MMODL / IJN: [id number] /
[2019-09-12] MEDS: SODIUM CHLORIDE 0.9% 1,000 ML IV SCH ×2 (09:06→18:08)
[2019-09-12] MEDS: NAPROXEN 250 MG TAB PO SCH ×3 (09:08→21:07)
[2019-09-12] MEDS: ENOXAPARIN 40 MG/0.4 ML SYRINGE SQ SCH (09:08)
[2019-09-12] MEDS: CIPROFLOXACIN-DEXAMETH 0.3-0.1% DROPS 7.5 ML BTL LEFT EAR SCH ×3 (09:31→21:06)
[2019-09-12 10:00] LABS: Basophils % (A) 0 %; Eosinophils # (A) 0.3 k/uL (0-0.7); Eosinophils % (A) 5 %; HGB 12.7 gm/dL (13.0-17.5); Lymphocytes # (A) 0.9 k/uL (1.0-4.8); Lymphocytes % (A) 14 %; MCH 28.6 pg (25.0-35.0); MCHC 32.7 g/dL (31.0-37.0); MCV 87.5 fL (80.0-100.0); Mean Platelet Volume 8.6; Monocytes # (A) 0.3 k/uL (0-1.0); Monocytes % (A) 4 %; Neutrophils # (A) 4.8 k/uL (1.3-7.7); Neutrophils % (A) 74 %; Platelet Count 218 k/uL (150-450); RBC 4.46 m/uL (4.30-5.90); RDW 13.3 % (11.5-15.5); WBC 6.5 k/uL (3.8-10.6)
--- NOTE | 2019-09-12 17:16 | P.PN ---
Progress Note - Text Progress Note Date: 09/12/19 Chief Complaint: Left-sided face ear redness History of presenting complaint: This is a very pleasant 49-year-old patient of Dr. Luiza Dietz. Rather good health. Patient about 2 days ago noticed that the pain swelling redness started off in the left ear and extended to involve the setting of the face. Became rather severe. And decided to come in. Patient had a previous infection few months ago on the scalp. Patient does use an electric razor for the scalp and also uses the electric razor for shaving his face. Also when using the shower patient will also useTylenol was a fragment of pain inside inside and outside the ear. Patient does pull out his ear hair. Last admitted was about a month ago. Computed tomography scan showed involvement of the maxillary sinus mucosal thickening with no involvement of the mastoid. Patient patient's had fever and some chills. Though significant pain in the local area. Patient's at the bedside. She denies any change of vision. No neck stiffness. Admitted with-acute severe otitis externa, acute cellulitis of the left ear and of the adjoining left face. Today-pain. Redness is gone up a bit. No fever or chills. Getting antibiotics. Tolerating a diet. and a friend of the bedside. Review of systems: Was done for constitutional, cardiovascular, GI, pulmonary. relevant finding as above Active Medications Acetaminophen (Tylenol Tab) 650 mg PO Q6HR PRN PRN Reason: Mild Pain or Fever > 100.5 Ciprofloxacin/Dexamethasone (Ciprodex Otic Susp) 4 drops LEFT EAR TID [facility] Last Admin: 09/12/19 16:58 Dose: 4 drops Documented by: Enoxaparin Sodium (Lovenox) 40 mg SQ DAILY [facility] Last Admin: 09/12/19 09:08 Dose: Not Given Documented by: Sodium Chloride (Saline 0.9%) 1,000 mls @ 100 mls/hr IV .Q10H [facility] Last Admin: 09/12/19 09:06 Dose: 100 mls/hr Documented by: Cefazolin Sodium 2 gm/ Sodium (Chloride) 50 mls @ 100 mls/hr IVPB Q8HR [facility] Last Admin: 09/12/19 16:57 Dose: 100 mls/hr Documented by: Naloxone HCl (Narcan) 0.2 mg IV Q2M PRN PRN Reason: Opioid Reversal Naproxen (Naprosyn) 250 mg PO TID [facility] Last Admin: 09/12/19 16:58 Dose: 250 mg Documented by: Physical examination: VITAL SIGNS: Afebrile, 97.7, 78, 18, blood pressure 130/84, 97% on room air GENERAL: Sitting on a chair, awake EYES: Pupils equal. Conjunctiva normal. HEENT: Left ear is thick red and swollen tender with redness extending to adjoining cheek and also involvement of the visible portion of the external auditory canal.-Some improvement from yesterday NECK: JVD not raised; masses not palpable. HEART: First and second heart sounds are normal; no edema. LUNGS: Respiratory rate normal; clear to auscultation. ABDOMEN: Soft, nontender, liver spleen not palpable, no masses palpable. PSYCH: Alert and oriented x3; mood and affect normal. INVESTIGATIONS, reviewed in the clinical context: White count 6.5, hemoglobin 12.7, CRP 131 Previous testing White count 14.5 hemoglobin 15.3 increased neutrophils potassium 4.2 creatinine 0.98 CRP [address]-no involvement of mastoid some mucosal thickening of the maxillary sinus and involvement of the external and artery canal and ear Assessment: -Acute severe cellulitis including the left ear and the order Trichinella and surrounding facial area some possible involvement of the left maxillary sinus. This could've been precipitated by patient using a face towel to scrub his ear. Otitis externa.-Slowly improving -Sepsis from above -Elevated CRP Plan: Continue with Ciprodex eardrops and IV Ancef and also naproxen. Care was discussed with the patient. Question answered. Decrease IV fluids. Check pro calcitonin in the morning. Follows anxiety..
--- NOTE | 2019-09-13 05:10 | PN ---
PROGRESS NOTE DATE OF PROGRESS NOTE: 09/12/2019. SUBJECTIVE: Vital signs stable. The patient is afebrile. The patient states that he feels much better today and he is experiencing much less pain in the left aide facial area and also the left ear. OBJECTIVE: HEENT: Patient is normocephalic. Examination of the left aide face reveals that most of the erythema of the left aide face has a result, there is some mild erythema of the patient's left ear. Deep palpation of the left auricle could not elicit any severe pain, although the patient states that it is slightly tender. In addition to this, inspection of the meatus and palpation of the left tragus of the left external auditory canal does not elicit any severe pain. Again, the patient states that the area is tender but not severely sore. He notes that it is markedly improved since he was admitted. Palpation of the left neck reveals the patient still has the previously noted shotty anterior cervical adenopathy. The remainder of the head and neck exam and chest/cardiovascular exam is unchanged since last . ASSESSMENT: Left facial cellulitis, left external otitis. PLAN: Continue with the intravenous antibiotics for the period to be determined by the infectious disease service. I would recommend continuing with the patient's Ciprodex ear drops and that the patient be given the remaining bottle of Ciprodex ear drops to continue at home, 4 drops in the left ear T.I.D., until they are gone. In addition to this, certainly at the point that the patient is discharged, he may discharge on the antibiotic chosen by the infectious disease service. As I mentioned before, this patient could be followed up in his own family doctor's office or if he does not have a family doctor, then I would be more than happy to see him in my office. MMODL / IJN: [id number] / MTDD
[2019-09-13] MEDS: ENOXAPARIN 40 MG/0.4 ML SYRINGE SQ SCH (07:24)
[2019-09-13] MEDS: NAPROXEN 250 MG TAB PO SCH ×3 (09:20→21:44)
[2019-09-13] MEDS: CIPROFLOXACIN-DEXAMETH 0.3-0.1% DROPS 7.5 ML BTL LEFT EAR SCH ×3 (09:21→21:43)
--- NOTE | 2019-09-13 23:59 | P.PN ---
Progress Note - Text Progress Note Date: 09/13/19 Chief Complaint: Left-sided face ear redness History of presenting complaint: This is a very pleasant 49-year-old patient of Dr. Luiza Dietz. Rather good health. Patient about 2 days ago noticed that the pain swelling redness started off in the left ear and extended to involve the setting of the face. Became rather severe. And decided to come in. Patient had a previous infection few months ago on the scalp. Patient does use an electric razor for the scalp and also uses the electric razor for shaving his face. Also when using the shower patient will also useTylenol was a fragment of pain inside inside and outside the ear. Patient does pull out his ear hair. Last admitted was about a month ago. Computed tomography scan showed involvement of the maxillary sinus mucosal thickening with no involvement of the mastoid. Patient patient's had fever and some chills. Though significant pain in the local area. Patient's at the bedside. She denies any change of vision. No neck stiffness. Admitted with-acute severe otitis externa, acute cellulitis of the left ear and of the adjoining left face. Today-pain and redness swelling continues to be improved. Occasional sharp pains. Review of systems: Was done for constitutional, cardiovascular, GI, pulmonary. relevant finding as above Active Medications Acetaminophen (Tylenol Tab) 650 mg PO Q6HR PRN PRN Reason: Mild Pain or Fever > 100.5 Last Admin: 09/13/19 21:44 Dose: 650 mg Documented by: Ciprofloxacin/Dexamethasone (Ciprodex Otic Susp) 4 drops LEFT EAR TID [facility] Last Admin: 09/13/19 21:43 Dose: 4 drops Documented by: Enoxaparin Sodium (Lovenox) 40 mg SQ DAILY [facility] Last Admin: 09/13/19 07:24 Dose: Not Given Documented by: Cefazolin Sodium 2 gm/ Sodium (Chloride) 50 mls @ 100 mls/hr IVPB Q8HR [facility] Last Admin: 09/13/19 16:17 Dose: 100 mls/hr Documented by: Naloxone HCl (Narcan) 0.2 mg IV Q2M PRN PRN Reason: Opioid Reversal Naproxen (Naprosyn) 250 mg PO TID [facility] Last Admin: 09/13/19 21:44 Dose: 250 mg Documented by: Physical examination: VITAL SIGNS: 97.8, 71, 18, blood pressure 144/86, 95% on room air GENERAL: Sitting on a chair, awake EYES: Pupils equal. Conjunctiva normal. HEENT: Left ear is thick red and swollen tender with redness extending to adjoining cheek and also involvement of visible portion of the external auditory canal.-Further improvement. Decreased area of redness NECK: JVD not raised; masses not palpable. HEART: First and second heart sounds are normal; no edema. LUNGS: Respiratory rate normal; clear to auscultation. ABDOMEN: Soft, nontender, liver spleen not palpable, no masses palpable. PSYCH: Alert and oriented x3; mood and affect normal. INVESTIGATIONS, reviewed in the clinical context: Pro calcitonin 0.10 Previous testing White count 14.5 hemoglobin 15.3 increased neutrophils potassium 4.2 creatinine 0.98 CRP [address]-no involvement of mastoid some mucosal thickening of the maxillary sinus and involvement of the external and artery canal and ear CRP 131 Assessment: -Acute severe cellulitis including the left ear and the order Trichinella and surrounding facial area some possible involvement of the left maxillary sinus. This could've been precipitated by patient using a face towel to scrub his ear. Otitis externa.-Slowly improving -Sepsis from above -Elevated CRP Plan: Responded to IV Ancef and Ciprodex drops. We'll check pro calcitonin again kayla rrow morning. Care was discussed with the patient and .
--- NOTE | 2019-09-14 00:01 | PN ---
PROGRESS NOTE DATE OF SERVICE: 09/13/2019. REASON FOR FOLLOWUP: Left otitis externa. INTERVAL HISTORY: The patient is currently afebrile, has been breathing comfortably. The patient's left ear pain and swelling and redness have improved. The patient denies having any chest pain, shortness of breath or cough. No abdominal pain or diarrhea. PHYSICAL EXAMINATION: Blood pressure 160/84 with a pulse of 73, temperature 98.4. He is 97% on room air. General description is a middle-aged male up in the bed in no distress. HEENT EXAMINATION: Left ear swelling and redness have decreased. LUNGS: Unlabored breathing. Clear to auscultation anteriorly. HEART: S1, S2. Regular rate and rhythm. ABDOMEN: Soft. No tenderness. LABS: Hemoglobin is 12.7, white count 6.5, creatinine 0.91. Blood culture has been negative. DIAGNOSTIC IMPRESSION AND PLAN: Patient with left otitis externa in this patient who clinically responded to cefazolin 2 grams q.8 hours. That will be continued, finishing therapy with oral Keflex and close outpatient followup. MMODL / IJN: [id number] /
[2019-09-14 06:58] VITALS: BP 150/87; PULSE 73; RESP 18; TEMP 97.7
[2019-09-14] MEDS: ENOXAPARIN 40 MG/0.4 ML SYRINGE SQ SCH (08:52)
[2019-09-14] MEDS: CIPROFLOXACIN-DEXAMETH 0.3-0.1% DROPS 7.5 ML BTL LEFT EAR SCH (08:52)
[2019-09-14] MEDS: NAPROXEN 250 MG TAB PO SCH (08:52)
--- NOTE | 2019-09-14 11:23 | PN ---
PROGRESS NOTE DATE OF SERVICE: 09/14/2019 REASON FOR FOLLOWUP: Left otitis externa. INTERVAL HISTORY: The patient is currently afebrile. Has been breathing comfortably. The patient denies having any chest pain. No shortness of breath or cough. No abdominal pain or any diarrhea. PHYSICAL EXAMINATION: Blood pressure is 151/87 with a pulse of 70, temperature is 98.7. He is 98% on room air. General description is a middle-aged male up in the bed in no distress. HEENT: Left external ear swelling and redness have improved. LUNGS: Unlabored breathing. Clear to auscultation anteriorly. HEART: S1, S2. Regular rate and rhythm. ABDOMEN: Soft. No tenderness. LABS: No new labs have been obtained today. DIAGNOSTIC IMPRESSION AND PLAN: Patient with left otitis externa. The patient seems to have shown overall clinical improvement on IV cefazolin, finishing therapy with oral Keflex 500 mg p.o. q.6 hours for 7 days. Prescription has been sent out. Continue close outpatient followup. Questions and concerns were answered. MMODL / IJN: [id number] /
--- NOTE | 2019-09-14 23:40 | P.DS ---
Providers Date of admission: 09/12/19 14:03 Expected date of discharge: 09/14/19 Attending physician: Lorenzo Torres Consults: 09/10/19 14:58 Consult Physician Urgent Consulting Provider: Irwin Green Consult Reason/Comments: acute left otitis externa with sepsis Do you want consulting provider notified?: Yes Consult Physician Urgent Consulting Provider: Ros Hurst Consult Reason/Comments: acute left otitis externa with sepsis Do you want consulting provider notified?: Yes Primary care physician: Nicole Dietz [place] Course: Chief Complaint: Left-sided face ear redness History of presenting complaint: This is a very pleasant 49-year-old patient of Dr. Luiza Dietz. Rather good health. Patient about 2 days ago noticed that the pain swelling redness started off in the left ear and extended to involve the setting of the face. Became rather severe. And decided to come in. Patient had a previous infection few months ago on the scalp. Patient does use an electric razor for the scalp and also uses the electric razor for shaving his face. Also when using the shower patient will also useTylenol was a fragment of pain inside inside and outside the ear. Patient does pull out his ear hair. Last admitted was about a month ago. Computed tomography scan showed involvement of the maxillary sinus mucosal thickening with no involvement of the mastoid. Patient patient's had fever and some chills. Though significant pain in the local area. Patient's at the bedside. She denies any change of vision. No neck stiffness. Admitted with-acute severe otitis externa, acute cellulitis of the left ear and of the adjoining left face. Treated with IV cefazolin, Ciprodex eardrops and anti-inflammatory. Responded well. Today-Pain redness swelling greatly improved. Ear canal cleared up. Feeling much better.. Care discussed with the patient and . Questions answered. Consultation: Dr. Green from ENT Dr. Hurst from [place] Physical examination: VITAL SIGNS: 97.7, 73, 18, blood pressure 150/87, pulse ox 98% on room air GENERAL: Sitting on a chair, awake EYES: Pupils equal. Conjunctiva normal. HEENT: Left ear in adjoining anterior part of the cheek redness swelling greatly improved. Ear canal looking much healthy. NECK: JVD not raised; masses not palpable. HEART: First and second heart sounds are normal; no edema. LUNGS: Respiratory rate normal; clear to auscultation. ABDOMEN: Soft, nontender, liver spleen not palpable, no masses palpable. PSYCH: Alert and oriented x3; mood and affect normal. INVESTIGATIONS, reviewed in the clinical context: Pro calcitonin 0.07 Previous testing White count 14.5 hemoglobin 15.3 increased neutrophils potassium 4.2 creatinine 0.98 CRP [address]-no involvement of mastoid some mucosal thickening of the maxillary sinus and involvement of the external and artery canal and ear CRP 131 Pro calcitonin 0.10 Assessment: -Acute severe cellulitis including the left ear and the order Trichinella and surrounding facial area some possible involvement of the left maxillary sinus. This could've been precipitated by patient using a face towel to scrub his ear. Otitis externa. -Sepsis from above -Elevated CRP Disposition: Home Patient Condition at Discharge: Stable Plan - Discharge Summary New Discharge Prescriptions: New Cephalexin [Keflex] 500 mg PO Q6HR #30 cap Ciprofloxacin-Dexameth [Ciprodex Otic Susp] 4 drops LEFT EAR TID ml Naproxen [Naprosyn] 250 mg PO TID #21 tab Discharge Medication List Cephalexin [Keflex] 500 mg PO Q6HR #30 cap 09/14/19 [Rx] Ciprofloxacin-Dexameth [Ciprodex Otic Susp] 4 drops LEFT EAR TID ml 09/14/19 [R x] Naproxen [Naprosyn] 250 mg PO TID #21 tab 09/14/19 [Rx] Follow up Appointment(s)/Referral(s): Nicole Dietz MD [Primary Care Provider] - 1-2 days (THE OFFICE WILL CALL TO SCHEDULE APPOINTMENT) Irwin Green MD [STAFF PHYSICIAN] - 09/21/19 9:30 am Patient Instructions/Handouts: Otitis Externa (DC), Sepsis (GEN) Discharge/Stand Alone Forms: Work/School Release / Restrict Discharge Disposition: HOME SELF-CARE
== END 2019-09-14 12:32 | disposition home or self-care (01) | DRG 872 ==
LOC: EC 10:26 → 6NMEDSUR 14:57 → OBSVTOIN 09-12 14:03
PROVIDERS: ADMIT Hospitalist; ATTEND Hospitalist
DX: A41.9 Sepsis, unspecified organism (principal); L03.211 Cellulitis of face; H60.12 Cellulitis of left external ear; H91.90 Unspecified hearing loss, unspecified ear; H60.502 Unspecified acute noninfective otitis externa, left ear; R79.82 Elevated C-reactive protein (CRP); Z82.49 Family history of ischemic heart disease and other diseases of the circulatory system
CPT/HCPCS: 36415; 70481; 80048; 80053; 83605; 84145; 85025; 86140; 87040; 96360; 99284

== ENCOUNTER 2023-05-09 08:48 | Emergency (ER) | payer BC, OTHER ==
[2023-05-09 09:04] VITALS: TEMP 98.6
--- NOTE | 2023-05-09 09:26 | ED ---
General Adult HPI - General Chief complaint: Abdominal Pain Stated complaint: constipation Time Seen by Provider: 05/09/23 09:00 Source: patient, RN notes reviewed, old records reviewed Mode of arrival: ambulatory Limitations: no limitations - History of Present Illness Initial comments: This a 52-year-old male who presents emergency Department complaining of lower abdominal pain for 2 weeks. Patient states it started on the left now is progressive over to the right side. Patient states she's also been constipated since Thursday and that brings him in today per patient denies any fever chills. Patient denies any nausea vomiting per patient denies chest pain difficulty breathing or back pain. Patient denies any dysuria hematuria urinary frequency. Patient denies any urinary retention. - Related Data Previous Rx's Medication Instructions Recorded Cephalexin [Keflex] 500 mg PO Q6HR #30 cap 09/14/19 Ciprofloxacin-Dexameth [Ciprodex 4 drops LEFT EAR TID ml 09/14/19 Otic Susp] Naproxen [Naprosyn] 250 mg PO TID #21 tab 09/14/19 Ketorolac [Toradol] 10 mg PO Q6HR #15 tab 05/09/23 Tamsulosin [Flomax] 0.4 mg PO DAILY #10 cap 05/09/23 Allergies Allergy/AdvReac Type Severity Reaction Status Date / Time No Known Allergies Allergy Verified 05/09/23 08:57 Review of Systems ROS Statement: Those systems with pertinent positive or pertinent negative responses have been documented in the HPI. ROS Other: All systems not noted in ROS Statement are negative. Past Medical History Past Medical History: No Reported History Additional Past Medical History / Comment(s): cellulitis of head History of Any Multi-Drug Resistant Organisms: None Reported Past Surgical History: No Surgical Hx Reported Past Psychological History: No Psychological Hx Reported Smoking Status: Never smoker Past Alcohol Use History: Rare Past Drug Use History: None Reported - Past Family History Mother Family Medical History: No Reported History Father Family Medical History: Coronary Artery Disease (CAD) General Exam - General Exam Comments Initial Comments: GENERAL: Patient is well-developed and well-nourished. Patient is nontoxic and well- hydrated and is in no acute distress. ENT: Neck is soft and supple. No significant lymphadenopathy is noted. Oropharynx is clear. Moist mucous membranes. Neck has full range of motion without eliciting any pain. EYES: The sclera were anicteric and conjunctiva were pink and moist. Extraocular movements were intact and pupils were equal round and reactive to light. Eyelids were unremarkable. PULMONARY: Unlabored respirations. Good breath sounds bilaterally. No audible rales rhonchi or wheezing was noted. CARDIOVASCULAR: There is a regular rate and rhythm without any murmurs gallops or rubs. ABDOMEN: Patient mild abdominal pain left lower quadrant and lower quadrant. SKIN: Skin is clear with no lesions or rashes and otherwise unremarkable. NEUROLOGIC: Patient is alert and oriented x3. Cranial nerves II through XII are grossly intact. Motor and sensory are also intact. Normal speech, volume and content. Symmetrical smile. MUSCULOSKELETAL: Normal extremities with adequate strength and full range of motion. LYMPHATICS: No significant lymphadenopathy is noted PSYCHIATRIC: Normal psychiatric evaluation. Limitations: no limitations Course Vital Signs 05/09/23 08:55 Temperature 98.6 F Pulse Rate 74 Respiratory 20 Rate Blood Pressure 154/97 O2 Sat by Pulse 99 Oximetry Medical Decision Making - Medical Decision Making Was pt. sent in by a medical professional or institution (, PA, [facility], urgent care, hospital, or fdc...) When possible be specific @ -No Did you speak to anyone other than the patient for history (EMS, parent, family, police, friend...)? What history was obtained from this source @ -No Did you review nursing and triage notes (agree or disagree)? Why? @ -I reviewed and agree with nursing and triage notes Were old charts reviewed (outside hosp., previous admission, EMS record, old EKG, old radiological studies, urgent care reports/EKG's, fdc records)? Report findings @ -No old charts were reviewed Differential Diagnosis (chest pain, altered mental status, abdominal pain women, abdominal pain men, vaginal bleeding, weakness, fever, dyspnea, syncope, headache, dizziness, GI bleed, back pain, seizure, CVA, palpatations, mental health, musculoskeletal)? @ -Dominant pain men EKG interpreted by me (3pts min.). @ -As above X-rays interpreted by me (1pt min.). @ -KUB showed no acute abnormality CT interpreted by me (1pt min.). @ -CT scan showed a 7 mm right sided ureteral stone U/S interpreted by me (1pt. min.). @ -None done What testing was considered but not performed or refused? (CT, X-rays, U/S, labs)? Why? @ -None What meds were considered but not given or refused? Why? @ -None Did you discuss the management of the patient with other professionals (professionals i.e. , PA, [employer], lab, RT, psych nurse, social service director, lead software developer, teacher, crime prevention police officer, case management coordinator)? Give summary @ -No Was smoking cessation discussed for >3mins.? @ -No Was critical care preformed (if so, how long)? @ -No Were there social determinants of health that impacted care today? How? (Homelessness, low income, unemployed, alcoholism, drug addiction, transportation, low edu. Level, literacy, decrease access to med. care, care home, rehab)? @ -No Was there de-escalation of care discussed even if they declined (Discuss DNR or withdrawal of care, Hospice)? DNR status @ -No What co-morbidities impacted this encounter? (DM, HTN, Smoking, COPD, CAD, Cancer, CVA, ARF, Chemo, Hep., AIDS, mental health diagnosis, sleep apnea, morbid obesity)? @ -None Was patient admitted / discharged? Hospital course, mention meds given and route, prescriptions, significant lab abnormalities, going to OR and other pertinent info. @ -Received Zofran Toradol and Dilaudid for pain and nausea he was doing considerably better patient we discharged to follow-up with urology. Undiagnosed new problem with uncertain prognosis? @ -No Drug Therapy requiring intensive monitoring for toxicity (Heparin, Nitro, Insulin, Cardizem)? @ -No Were any procedures done? @ -No Diagnosis/symptom? @ -Kidney stone Acute, or Chronic, or Acute on Chronic? @ -Acute Uncomplicated (without systemic symptoms) or Complicated (systemic symptoms)? @ -Complicated Side effects of treatment? @ -No Exacerbation, Progression, or Severe Exacerbation? @ -No Poses a threat to life or bodily function? How? (Chest pain, [place], SD, pneumonia, PE, COPD, DKA, ARF, appy, cholecystitis, CVA, Diverticulitis, Homicidal, Suicidal, threat to staff... and all critical care pts) @ -No - Lab Data Result diagrams: 05/09/23 09:33 05/09/23 09:33 Lab Results 05/09/23 05/09/23 Range/Units 09:33 09:33 WBC 11.0 H (3.8-10.6) k/uL RBC 5.49 (4.30-5.90) m/uL Hgb 16.2 (13.0-17.5) gm/dL Hct 48.1 (39.0-53.0) % MCV 87.7 (80.0-100.0) fL MCH 29.6 (25.0-35.0) pg MCHC 33.7 (31.0-37.0) g/dL RDW 13.3 (11.5-15.5) % Plt Count 278 (150-450) k/uL MPV 8.4 Neutrophils % 84 % Lymphocytes % 9 % Monocytes % 4 % Eosinophils % 2 % Basophils % 0 % Neutrophils # 9.2 H (1.3-7.7) k/uL Lymphocytes # 0.9 L (1.0-4.8) k/uL Monocytes # 0.5 (0-1.0) k/uL Eosinophils # 0.3 (0-0.7) k/uL Basophils # 0.0 (0-0.2) k/uL Sodium 137 (137-145) mmol/L Potassium 4.7 (3.5-5.1) mmol/L Chloride 103 (98-107) mmol/L Carbon Dioxide 23 (22-30) mmol/L Anion Gap 11 mmol/L BUN 15 (9-20) mg/dL Creatinine 1.36 H (0.66-1.25) mg/dL Est GFR (CKD-EPI)AfAm 69 (>60 ml/min/1.73 sqM) Est GFR (CKD-EPI)NonAf 60 (>60 ml/min/1.73 sqM) Glucose 151 H (74-99) mg/dL Calcium 9.6 (8.4-10.2) mg/dL Total Bilirubin 0.9 (0.2-1.3) mg/dL AST 32 (17-59) U/L ALT 45 (4-49) U/L Alkaline Phosphatase 82 (38-126) U/L Total Protein 7.5 (6.3-8.2) g/dL Albumin 4.4 (3.5-5.0) g/dL Amylase 44 (30-110) U/L Lipase 65 (23-300) U/L Disposition Clinical Impression: Kidney stone Disposition: HOME SELF-CARE Condition: Good Instructions (If sedation given, give patient instructions): Kidney Stones (ED) Prescriptions: Tamsulosin [Flomax] 0.4 mg PO DAILY #10 cap Ketorolac [Toradol] 10 mg PO Q6HR #15 tab Is patient prescribed a controlled substance at d/c from ED?: No Referrals: Nicole Dietz MD [Primary Care Provider] - 1-2 days Time of Disposition: 12:12
[2023-05-09 10:01] LABS: Basophils % (A) 0 %; Eosinophils # (A) 0.3 k/uL (0-0.7); Eosinophils % (A) 2 %; HCT 48.1 % (39.0-53.0); HGB 16.2 gm/dL (13.0-17.5); Lymphocytes # (A) 0.9 k/uL (1.0-4.8); Lymphocytes % (A) 9 %; MCH 29.6 pg (25.0-35.0); MCHC 33.7 g/dL (31.0-37.0); MCV 87.7 fL (80.0-100.0); Mean Platelet Volume 8.4; Monocytes # (A) 0.5 k/uL (0-1.0); Monocytes % (A) 4 %; Neutrophils # (A) 9.2 k/uL (1.3-7.7); Neutrophils % (A) 84 %; Platelet Count 278 k/uL (150-450); RBC 5.49 m/uL (4.30-5.90); RDW 13.3 % (11.5-15.5)
[2023-05-09 10:18] LABS: ALT 45 U/L (4-49); AST 32 U/L (17-59); African American GFR (CKD) 69 (>60 ml/min/1.73 sqM); Albumin 4.4 g/dL (3.5-5.0); Alkaline Phosphatase 82 U/L (38-126); Amylase 44 U/L (30-110); Anion Gap 11 mmol/L; Blood Urea Nitrogen 15 mg/dL (9-20); Calcium 9.6 mg/dL (8.4-10.2); Carbon Dioxide 23 mmol/L (22-30); Chloride 103 mmol/L (98-107); Glucose 151 mg/dL (74-99); Lipase 65 U/L (23-300); Non-African American GFR(CKD) 60 (>60 ml/min/1.73 sqM); Potassium 4.7 mmol/L (3.5-5.1); Sodium 137 mmol/L (137-145); Total Bilirubin 0.9 mg/dL (0.2-1.3); Total Protein 7.5 g/dL (6.3-8.2)
--- NOTE | 2023-05-09 10:32 | XR ---
EXAMINATION TYPE: XR KUB DATE OF EXAM: 05/09/2023 9:58 AM CLINICAL INDICATION:Male, 52 years old with history of abdominal pain; [facility] COMPARISON: None. TECHNIQUE: Upright views of the abdomen and pelvis obtained. FINDINGS: Exam is somewhat limited by body habitus. Right pelvic phlebolith. No definite pathologic c alcifications are seen. No evidence of organomegaly or mass effect. Mild scattered gas throughout the small bowel without significant distention seen. Mild to moderate stool mixed with gas in the right colon, scattered gas further distally to the rectum without significant distention seen. No evidence of pneumoperitoneum. Mild degenerative changes of the spine and hips. IMPRESSION: 1. Nonspecific bowel gas pattern without radiographic evidence for acute process. 2. Mild to moderate colonic stool.
--- NOTE | 2023-05-09 11:07 | CT ---
EXAMINATION TYPE: CT abdomen pelvis w con CT DLP: 1447.40 mGycm, Automated exposure control for dose reduction was used. DATE OF EXAM: 05/09/2023 10:54 AM COMPARISON: CT abdomen pelvis most recent from CLINICAL INDICATION:Male, 52 years old with history of Abdominal pain; lower abd and back pain x 2 we eks TECHNIQUE: Axial CT of the ;CT abdomen pelvis w con;Sagittal and coronal reformats were created on a separate workstation. Contrast used:100 mL of Isovue 300 with IV Contrast, (none if empty) Oral contrast used: without Oral Contrast (none if empty) FINDINGS: LOWER CHEST: Unremarkable ABDOMEN LIVER: Diffusely hypoattenuating parenchyma. GALLBLADDER AND BILE DUCTS: Unremarkable. PANCREAS: Unremarkable. SPLEEN: Unremarkable. ADRENAL GLANDS: Unremarkable. KIDNEYS AND URETERS: Right 6 mm renal calculus is no left renal calculi. Mild right hydronephrosis se condary the proximal right ureter 7 mm calculus. PELVIS BLADDER: Unremarkable REPRODUCTIVE: Unremarkable. ABDOMEN & PELVIS STOMACH AND BOWEL: No evidence of bowel obstruction. PERITONEUM/RETROPERITONEUM: No evidence of pneumoperitoneum or free fluid. VASCULATURE: No evidence of aortic aneurysm. MUSCULOSKELETAL: No acute osseous abnormalities LYMPH NODES: No gross evidence for lymphadenopathy. SOFT TISSUE/ABDOMINAL WALL: Fat-containing inguinal hernias left greater than right. IMPRESSION: 1. Mild right hydronephrosis secondary to obstructing 7 mm calculus in the proximal right ureter. Ad ditional nonobstructing right renal calculus. 2. Hepatic steatosis.
[2023-05-09] MEDS ORDERED: KETOROLAC 15 MG/ML 1 ML VIAL IVP STA (11:53)
[2023-05-09] MEDS ORDERED: HYDROmorphone 0.5 MG/0.5 ML SYRINGE IVP STA (11:53)
[2023-05-09] MEDS ORDERED: ACET/COD 300 MG/30 MG STARTER PACK 6 TAB BTL PO STA (12:12)
[2023-05-09] MEDS ORDERED: ONDANSETRON 4 MG ODT STARTER PACK 2 TAB BTL PO STA (12:12)
[2023-05-09 13:01] VITALS: BP 142/80; PULSE 85; RESP 18
== END 2023-05-09 12:55 | disposition home or self-care (01) ==
LOC: EC 08:48
DX: N13.2 Hydronephrosis with renal and ureteral calculous obstruction (principal)
CPT/HCPCS: 36415; 80053; 82150; 83690; 85025; 74018; 74177; 99284; 96374; 96375; J1885; S0119; J1170; Q9967

== ENCOUNTER 2023-05-21 07:02 | Day surgery (SDC) | payer BC ==
[2023-05-15 16:23] VITALS: BMI 31.5
--- NOTE | 2023-05-18 07:37 | P.GSHP ---
History of Present Illness H&P Date: 05/18/23 Chief Complaint: Right renal colic The patient is a 52-year-old male with no prior history of urolithiasis. He has experienced lower abdominal pain since mid April. CT scan shows mild to moderate right hydronephrosis due to a 7 mm right proximal ureteral calculus. A 5-6 mm right mid pole calculus was also seen. No calculi are seen on the left, and the calculi cannot be seen on a plain radiograph. - Constitutional Constitutional: Denies chills, Denies fever - Gastrointestinal Gastrointestinal: Denies nausea, Denies vomiting - Genitourinary (Female) Genitourinary: Reports flank pain, Reports kidney stones, Denies dysuria, Denies hematuria Past Medical History Past Medical History: No Reported History Additional Past Medical History / Comment(s): KIDNEY STONES History of Any Multi-Drug Resistant Organisms: None Reported Past Surgical History: No Surgical Hx Reported Past Anesthesia/Blood Transfusion Reactions: No Reported Reaction Smoking Status: Never smoker - Past Family History Mother Family Medical History: No Reported History Father Family Medical History: Coronary Artery Disease (CAD) Medications and Allergies Home Medications Medication Instructions Recorded Confirmed Type Ketorolac [Toradol] 10 mg PO Q6HR #15 tab 05/09/23 05/15/23 Rx Tamsulosin [Flomax] 0.4 mg PO DAILY #10 cap 05/09/23 05/15/23 Rx Acetaminophen-Codeine 300-30mg 1 tab PO Q6H PRN 05/15/23 05/15/23 History [Tylenol w/codeine #3] HYDROcodone/APAP 5-325MG [Kunia 1 tab PO Q6HR PRN 05/15/23 05/15/23 History 5-325] Ondansetron [Ondansetron Odt] 4 mg PO DIRECTED PRN 05/15/23 05/15/23 History Allergies Allergy/AdvReac Type Severity Reaction Status Date / Time No Known Allergies Allergy Verified 05/15/23 16:04 Surgical - Exam - General well developed, well nourished, no distress - Respiratory normal respiratory effort - Abdomen Abdomen: soft, non tender, no guarding, no rigid, no rebound - Psychiatric oriented to time, oriented to person, oriented to place, speech is normal, memory intact Results - Imaging CT scan - abdomen: report reviewed, image reviewed Assessment and Plan (1) Kidney stone Narrative/Plan: The fact that the calculi cannot be seen on a plain radiograph suggests the possibility that they are of uric acid composition. Status: Acute Code(s): N20.0 - CALCULUS OF KIDNEY SNOMED Code(s): 86866101 (2) Calculus of ureter Status: Acute Code(s): N20.1 - CALCULUS OF URETER SNOMED Code(s): 16185556 Plan: Cystoscopy, right retrograde pyelogram, right ureteroscopy with Holmium laser lithotripsy and stone basketing, right ureteral stent insertion. The procedure has been reviewed in detail with the patient and his . They've been made aware of potential risks, which include anesthesia, bleeding, infection, inability to successfully remove both calculi, and ureteral injury.
[2023-05-21] MEDS ORDERED: droPERidol 5 MG/2 ML VIAL IVP ONE (07:20)
[2023-05-21] MEDS ORDERED: LACTATED RINGERS 1,000 ML IV SCH (07:20)
[2023-05-21] MEDS ORDERED: LIDOCAINE 1% (10MG/ML) FOR IV START INTRADERMA PRN (07:20)
[2023-05-21] MEDS ORDERED: HYDROmorphone 0.5 MG/0.5 ML SYRINGE IVP PRN (07:20)
[2023-05-21] MEDS ORDERED: ONDANSETRON 4 MG/2 ML VIAL IVP ONE (07:20)
[2023-05-21] MEDS ORDERED: DEXAMETHASONE SOD PHOSPHATE 4 MG/ML 1 ML VIAL IV ONE (07:20)
[2023-05-21] MEDS ORDERED: MIDAZOLAM 2 MG/2 ML VIAL IVP ONE (08:18)
--- NOTE | 2023-05-21 08:25 | XR ---
EXAMINATION TYPE: XR KUB DATE OF EXAM: 05/21/2023 HISTORY: Pain Comparison: 05/09/2023 Single KUB is submitted for interpretation. Findings: Right renal calculi: None Visualized. Right ureteral calculi: None Visualized. Left renal calculi: None Visualized. Left ureteral calculi: None Visualized. Pelvic calcifications: Right-sided phleboliths noted. Bowel gas pattern is unremarkable. No free air. No mass effects. IMPRESSION: 1. No visible calculus seen
[2023-05-21] MEDS ORDERED: ePHEDrine 50 MG/ML 1 ML VIAL ONE (08:38)
[2023-05-21] MEDS ORDERED: LIDOCAINE 1% INJ 10MG/ML (20 ML MDV) ONE (08:38)
[2023-05-21] MEDS ORDERED: ROCURONIUM 10 MG/ML (5 ML VIAL) IV ONE (08:38)
[2023-05-21] MEDS ORDERED: GLYCOPYRROLATE 0.2 MG/ML 2 ML VIAL ONE (08:38)
[2023-05-21] MEDS ORDERED: SUCCINYLCHOLINE CHLORIDE 200 MG/10 ML VIAL IV ONE (08:38)
[2023-05-21] MEDS ORDERED: PROPOFOL 10 MG/ML 20 ML VIAL IV ONE (08:38)
[2023-05-21] MEDS ORDERED: MIDAZOLAM 2 MG/2 ML VIAL ONE (08:38)
[2023-05-21] MEDS ORDERED: fentaNYL (PF) 50 MCG/ML 2 ML AMP ONE (08:38)
[2023-05-21] MEDS ORDERED: NEOSTIGMINE 1 MG/ML 10 ML VIAL ONE (08:38)
[2023-05-21] MEDS ORDERED: KETOROLAC 30 MG/ML 1 ML VIAL ONE (08:38)
[2023-05-21] MEDS ORDERED: LACTATED RINGERS 1,000 ML IV ONE (09:23)
[2023-05-21] MEDS ORDERED: IOPAMIDOL-370 100ML BTL MISCELLANE ONE (09:26)
[2023-05-21 10:01] VITALS: TEMP 97.8
--- NOTE | 2023-05-21 10:05 | FL ---
Fluoroscopy History: Rt Kidney stone Cysto for Rt kidney stone 58sec fluoro time 9.7894 DAP
[2023-05-21 11:20] VITALS: RESP 16
[2023-05-21 11:46] VITALS: BP 131/78; PULSE 69
--- NOTE | 2023-05-21 13:05 | P.OP ---
Date of Procedure: 05/21/23 Preoperative Diagnosis: Right ureteral calculus, right renal calculus Postoperative Diagnosis: Same Procedure(s) Performed: Cystoscopy, right retrograde pyelogram, right ureteroscopy with Holmium laser lithotripsy and stone basketing, right ureteral stent insertion Anesthesia: GETA Surgeon: Kyle Martin Estimated Blood Loss (ml): 5 IV fluids (ml): 700 Pathology: other Condition: stable Disposition: PACU Indications for Procedure: The patient is a 52-year-old male with no prior history of urolithiasis. He has experienced lower abdominal pain since mid April. CT scan shows mild to moderate right hydronephrosis due to a 7 mm right proximal ureteral calculus. A 5-6 mm right mid pole calculus was also seen. No calculi are seen on the left, and the calculi cannot be seen on a plain radiograph. Operative Findings: Right mid-ureteral calculus, right lower pole calculus; both fragmented completely. Description of Procedure: The patient was taken to the operating room and placed in the dorsolithotomy position, with legs supported in Siva stirrups. The external genitalia was prepped and draped sterilely. The 30 lens was used to introduce the 21-Portuguese Mcguire cystoscopic sheath through the urethra and into the bladder under direct vision. A wide caliber penile urethral stricture was encountered, through which the cystoscope was advanced with some resistance. The prostatic urethra showed evidence of mild lateral lobe enlargement. The bladder was examined in its entirety. Both ureteral orifices were normal anatomic location and configuration, and clear urine effluxed from both. No tumors or foreign bodies were seen. Using a 10-Portuguese cone-tipped catheter, a right retrograde pyelogram was performed. Some irregularity of the right mid ureter was seen, suggesting the presence of a calculus in that location. A 0.038 inch Glidewire was passed through the cystoscope. The right ureteral orifice was cannulated, and the Glidewire was advanced up to the renal pelvis. The cystoscope was removed, and an 11/13-Portuguese ureteral access catheter was passed over the wire, up to the mid ureter. The caliber of the distal ureter was noted to be snug as the ureteral access catheter was advanced. The [place] flexible ureteroscope was then passed through the ureteral access catheter sheath and advanced under direct vision up to the stone. The 272 micron Holmium laser probe was passed through the ureteroscope, and lithotripsy was performed. After fragmenting the calculus, a 0 tip 1.9-Portuguese nitinol basket was used to remove all of the calculus fragments. Once this was completed, the ureter was inspected and there was no evidence of ureteral trauma. The ureteroscope was then advanced up to the kidney, and each calyx was examined. A 6 mm right lower pole calculus was identified. Using the stone basket, it was relocated into an upper pole calyx where lithotripsy was performed. After fragmenting the calculus, all calculus fragments were removed using the nitinol basket. Pull out ureteroscopy showed no evidence of ureteral trauma. The Glidewire was advanced through the ureteroscope, which was removed along with the ureteral access catheter sheath. The Glidewire was then backloaded into the cystoscope, which was passed into the bladder. A 26 cm, 4.8-Portuguese double-J ureteral stent was placed over the wire. Proper stent positioning was verified fluoroscopically and endoscopically. The bladder was emptied and the cystoscope removed. The patient tolerated the procedure well and was taken to the recovery room in stable condition. [facility] Report: Procedure Acuity: Urgent Stone Size and Location: 7 mm, right mid ureter. 6 mm, right lower pole. Ureteral Dilation: No Ureteral Access Sheath Used: Yes Stone Sent for Analysis: Yes All Stones/Fragments Were Removed with a Basket: Yes Complications: No Preoperative Antibiotics Given: Yes Stent Placed: Yes If Stent Placed, Was String Left Attached: No If Stent Placed, When is it to be Removed: 2 weeks Discharge Medications: Toradol, tamsulosin
== END 2023-05-21 11:55 | disposition home or self-care (01) ==
LOC: OR 07:02
PROVIDERS: ATTEND Urology
DX: N20.2 Calculus of kidney with calculus of ureter (principal); Z87.442 Personal history of urinary calculi; Z82.49 Family history of ischemic heart disease and other diseases of the circulatory system; Z79.899 Other long term (current) drug therapy
CPT/HCPCS: 82365; 74018; 52356; C2625; C1758; C1769 ×2; J2250; J0330; J1100; J2710; J0690; J2405; J2001; J3010; J1885; J2704; Q9967